=== PATIENT | female | born 1950 | race Caucasian/White ===

== ENCOUNTER 2016-07-14 08:34 | Outpatient (CLI) | payer OTHER | END 2016-07-14 08:35 | disposition home or self-care (01) | DX: Z12.31 Encounter for screening mammogram for malignant neoplasm of breast (principal) ==

== ENCOUNTER 2016-08-11 10:49 | Outpatient (CLI) | payer OTHER | END 2016-08-11 10:50 | disposition home or self-care (01) | DX: E83.52 Hypercalcemia (principal); R94.5 Abnormal results of liver function studies ==

== ENCOUNTER 2016-10-06 09:53 | Outpatient (CLI) | payer OTHER | END 2016-10-06 09:54 | disposition home or self-care (01) | DX: E78.2 Mixed hyperlipidemia (principal); E55.9 Vitamin D deficiency, unspecified; Z79.899 Other long term (current) drug therapy ==

== ENCOUNTER 2017-01-05 10:22 | Outpatient (CLI) | payer OTHER ==
[2017-01-06 21:27] LABS: TEST RESULT REPORT (())
== END 2017-01-05 10:23 | disposition home or self-care (01) ==
LOC: LAB.R 10:22
PROVIDERS: ATTEND Nurse Practitioner Obstetrics & Gynecology
DX: N76.1 Subacute and chronic vaginitis (principal)
CPT/HCPCS: 81599; 87480; 87510; 87660

== ENCOUNTER 2017-01-11 19:49 | Outpatient (CLI) | payer OTHER ==
--- NOTE | 2017-01-12 14:37 | Ultrasound Report ---
PELVIC ULTRASOUND: 01/11/2017 CLINICAL INDICATION: Postmenopausal bleeding. TECHNIQUE: Transabdominal pelvic ultrasound performed for global evaluation. Transvaginal pelvic ultr asound performed for detailed evaluation. Real-time scanning performed and static images obtained. FINDINGS: The uterus is anteverted, measuring 12.1 x 8.4 x 9.1 cm. The endometrial echo complex is t hickened for a postmenopausal patient, measuring 7 mm. A large posterior intramural leiomyoma is note d, measuring 7.2 x 6.3 x 5.3 cm. The right ovary measures 2.9 x 1.2 x 1.2 cm, and appears unremarkabl e. The left ovary measures 4.0 x 2.8 x 1.8 cm, and appears unremarkable. No free fluid is present. IMPRESSION: THICKENED ENDOMETRIUM FOR A POSTMENOPAUSAL PATIENT. CORRELATION WITH ENDOMETRIAL BIOPSY IS RECOMMENDED. LARGE POSTERIOR LEIOMYOMA. JOB #: [id number] EXT JOB #:[id number]
== END 2017-01-11 19:50 | disposition home or self-care (01) ==
LOC: DI 19:49
PROVIDERS: ATTEND Nurse Practitioner Obstetrics & Gynecology
DX: R93.8 Abnormal findings on diagnostic imaging of other specified body structures (principal); D25.1 Intramural leiomyoma of uterus
CPT/HCPCS: 76830; 76856

== ENCOUNTER 2017-05-07 09:24 | Outpatient (CLI) | payer MEDICARE, OTHER ==
[2017-05-08 10:06] LABS: THYROID STIMULATING HORMONE 2.77 uIU/mL (0.34-5.60)
== END 2017-05-07 23:59 | disposition home or self-care (01) ==
LOC: LAB.R 09:24
PROVIDERS: ATTEND Obstetrics & Gynecology
DX: E03.9 Hypothyroidism, unspecified (principal)
CPT/HCPCS: 84439; 84443; 84481

== ENCOUNTER 2017-05-07 12:26 | Outpatient (CLI) | payer OTHER, MEDICARE ==
[2017-05-07 13:23] LABS: BASOPHILS # (AUTO) 0.2 10^3/uL (0.0-0.1); BASOPHILS % (AUTO) 1.8 %; EOSINOPHILS # (AUTO) 0.2 10^3/uL (0.0-0.7); EOSINOPHILS % (AUTO) 1.6 %; HCT - HEMATOCRIT 47.7 % (37.0-47.0); HGB - HEMOGLOBIN 15.8 g/dL (12.0-16.0); LYMPHOCYTES # (AUTO) 2.9 10^3/uL (1.5-3.5); LYMPHOCYTES % (AUTO) 28.9 %; MEAN CORPUSCULAR HEMOGLOBIN 29.3 pg (27.0-31.0); MEAN CORPUSCULAR HGB CONC 33.1 g/dL (32.0-36.0); MEAN CORPUSCULAR VOLUME 88.5 fL (81.0-99.0); MONOCYTES # (AUTO) 0.6 10^3/uL (0.0-1.0); MONOCYTES % (AUTO) 5.7 %; NEUTROPHILS # (AUTO) 6.2 10^3/uL (1.5-6.6); NUCLEATED RED BLOOD CELLS AUTO 0.1 /100WBC; RED BLOOD COUNT 5.39 10^6/uL (4.20-5.40); RED CELL DISTRIBUTION WIDTH 13.9 % (12.0-15.0); UNCORRECTED WHITE BLOOD COUNT 10.1 x10^3/uL; WHITE BLOOD COUNT 10.1 x10^3/uL (4.8-10.8)
[2017-05-07 13:36] LABS: ALBUMIN/GLOBULIN RATIO 1.3 (1.0-2.2); BILIRUBIN,TOTAL 0.7 mg/dL (0.2-1.0); CALCIUM 9.8 mg/dL (8.5-10.3); CREATININE 0.9 mg/dL (0.4-1.0); POTASSIUM 4.4 mmol/L (3.5-5.0); TOTAL PROTEIN 7.8 g/dL (6.7-8.2)
[2017-05-07 14:09] LABS: PLATELET MORPHOLOGY NORMAL APPEARANCE (NORMAL)
[2017-05-08 10:13] LABS: HEMOGLOBIN A1C 0.95 g/dL
== END 2017-05-07 12:27 | disposition home or self-care (01) ==
LOC: LAB 12:26
PROVIDERS: ATTEND Obstetrics & Gynecology
DX: Z01.818 Encounter for other preprocedural examination (principal); N95.0 Postmenopausal bleeding; D25.9 Leiomyoma of uterus, unspecified; Z79.899 Other long term (current) drug therapy
CPT/HCPCS: 36415; 80053; 83036; 85025; 86850; 86900; 86901; 93005

== ENCOUNTER 2017-05-09 09:54 | Day surgery (SDC) | payer OTHER ==
--- NOTE | 2017-05-07 13:33 | PREOP HISTORY & PHYSICAL ---
DATE OF ADMISSION/SURGERY: 05/09/2017 IDENTIFICATION: A 67-year-old G0. HISTORY OF PRESENT ILLNESS: The patient presents today to [facility] for her preop visit. She has been scheduled for an 05/09/2017 total laparoscopic hysterectomy, bilateral salpingo-oophorectomy, and cystoscopy. The patient first saw me for consultation on 02/27/2017 secondary to postmenopausal bleeding. She stated that approximately in November of this year, she started having a light mucousy discharge. She also started to have more GI problems with respect to bloating and constipation. She had a subsequent 2016 pelvic ultrasound revealing a uterus measuring 12.1 x 8.4 x 9.1 cm, and it was anteverted. The endometrium measured 7 mm. There was a posterior leiomyoma measuring 7.2 x 6.3 x 5.3 cm. The right ovary measured 2.9 x 1.2 x 1.2 cm, and the left measured 4.0 x 2.8 x 1.8 cm. Given the size of the fibroid and its location, I recommended the patient to undergo a hysterectomy in order to solve her bleeding issues. It is possible that her fibroid may be necrosing, thus causing her bleeding. I discussed with the patient the risks, benefits, alternatives, indications, and expectations of a total laparoscopic hysterectomy, with a bilateral salpingo-oophorectomy and cystoscopy. With the surgery, the patient does have intrinsic risks of anesthesia, hemorrhage, infection, and damage to surrounding organs. With respect to damage to surrounding organs, this may be an inadvertent laceration, cauterization, or ligation of the adjacent ureters, intestines, or bladder. With this surgery, she will no longer be able to have postmenopausal bleeding. Furthermore, given the technical difficulty of the surgery, it is possible that we may have to abort the laparoscopic approach and proceed to an exploratory laparotomy. If we did proceed to an open case, the patient would need to stay for 1-2 nights, as opposed to going home later that evening for a laparoscopic approach. After all of the patient's questions were answered to her satisfaction , she verbalized her desired to proceed with surgery. Consent forms have been signed. The patient, otherwise, is doing well. She denies any nausea, vomiting, fevers, chills, diarrhea, or constipation. PAST MEDICAL HISTORY: 1. Hypothyroidism. 2. GERD. 3. Allergic rhinitis. 4. Mildly elevated cholesterol. 5. Nephrolithiasis bilaterally. PAST SURGICAL HISTORY: 1. Left knee arthroscopy. 2. Dilatation and curettage, with a transvaginal myomectomy. ALLERGIES: 1. SULFA, FOR WHICH SHE HAS LEG CRAMPING. 2. ERYTHROMYCIN, FOR WHICH SHE HAS AN UPSET STOMACH. MEDICATIONS: Levothyroxine, alternating between 150 and 175 mcg every other day. Her pharmacy of choice is [facility] in [place], [place]. (During her 2014 admit to [facility] admission she was discharged on Levothyroxine 125 mcg and 1150 mcg alternating days, ASA 81 mg 1 tab po daily, Omeprazole 20 mg 1 tab po daily, Atorvastatin 10 mg 1 tab po daily, metoprolol 25 mg ER 1 tab po daily.) SOCIAL HISTORY: She denies any tobacco or illicit drug use. She does consume alcohol on a social basis. Regine Cosby PA-C, is her primary care provider. 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 Her significant other is Margoth, an artist. PAST OBSTETRICAL HISTORY: Nulligravida. PAST GYNECOLOGICAL HISTORY: She has been in menopause for the last 10 years, and all Pap smears have been within normal limits. She denies any sexually transmitted diseases. FAMILY HISTORY: She denies any female carcinoma. REVIEW OF SYSTEMS: Negative unless otherwise stated. OBJECTIVE: VITAL SIGNS: Weight is 216 pounds. Height is 65 inches. BMI is 36. Blood pressure is 142/80. GENERAL: The patient is a well-developed, obese female in no apparent distress. She is alert and oriented x3. The patient is very pleasant and easy to speak to. She is also very intelligent. HEENT: Within normal limits. CARDIOVASCULAR: Rate is regular. No murmurs or rubs. PULMONARY: Lungs are clear to auscultation bilaterally. ABDOMEN: Obese, but nontender. DIAGNOSTIC DATA: Workup has revealed a 01/05/2014 Pap smear and high-risk HPV virus that were both negative. An 01/23/2017 endometrial biopsy revealed a few superficial fragments of endometrial mucosa, with focal cystic change. She has had a 2-dimensional CARLOS ENRIQUE on 08/24/2014 that was technically difficult. Contrast injection was performed. No comparison study. Normal left ventricular chamber size, with an ejection fraction of 55% to 60%. No regional wall motion abnormality. Normal right ventricular chamber size and function. Normal diastolic function for age and normal atrial size. Normal valves, without stenosis or clinically significant regurgitation. Unable to calculate pulmonary pressure due to insufficient TR. The right atrial pressure was normal. On 2014, cardiac stress test showed an equivocal stress echocardiogram for ischemia by electrocardiographic criteria. Negative stress test clinically for angina. Ectopy noted. On 04/29/2015, CT of the abdomen and pelvis was significant for bilateral mild hydronephrosis. Contrast was seen in both ureters. The uterus was bulky, with a large central leiomyoma. No pelvic adenopathy or free fluid was present. There was bilateral nephrolithiasis, with a 1.5 cm calculus at the right ureteropelvic junction and a 1.0 cm calculus at the left ureteropelvic junction , producing bilateral mild hydronephrosis. Finally, there was a 01/09/2014 pelvic ultrasound revealing a uterus measuring 9.7 x 6.2 x 7.7 cm, anteverted position, normal overall size and echotexture, and a posterior right submucosal fibroid measuring 4.5 x 4.7 x 4.4 cm. The endometrium measured 4 mm, with trace fluid. The cervix was unremarkable. The right ovary measured 3.7 x 2.9 x 1.4 cm. The left ovary measured 3.5 x 2.5 x 1.6 cm. No free fluid. No hydronephrosis bilaterally. ASSESSMENT: 1. A 67-year-old G0. 2. Postmenopausal bleeding. 3. Leiomyoma. PLAN: 1. We will proceed to a scheduled total laparoscopic hysterectomy, with bilateral salpingo-oophorectomy and cystoscopy. May have to proceed to exploratory laparotomy given the technical difficulty of the leiomyoma. 2. The patient will get preop labs, including a CBC, comp panel, and hemoglobin A1c. Also, EKG is ordered. We will have a type and screen ordered as well. 3. Anticipate giving Ancef 2 grams IV prior to incision for postoperative prophylaxis of cellulitis. 4. Discussed with the patient in detail that most of her pain will be due to inflammation, in which ibuprofen 800 mg 1 tab p.o. q.6h. as well as acetaminophen 1 gram p.o. q.8h. will be synergistic. She has been given a prescription for oxycodone 5 mg 1-2 tabs p.o. q.6h. p.r.n. for breakthrough pain. 5. She is to follow up with a postoperative visit in 2 weeks. JOB #: [id number] EXT JOB #:[id number] MTDD
[~2017-05-09 09:54] MED LIST: ceFAZolin 2 GM/50 ML 2 GM/50 ML BAG IV ONE
[2017-05-09] MEDS ORDERED: LACTATED RINGERS 1,000 ML IV ONE ×3 (09:57→15:20)
[2017-05-09] MEDS ORDERED: ONDANSETRON 4 MG/2 ML VIAL IVP ONE (11:00)
[2017-05-09] MEDS ORDERED: DEXAMETHASONE 4 MG/ML VIAL IVP ONE (11:00)
[2017-05-09] MEDS ORDERED: PROPOFOL 200 MG/20 ML VIAL IVP ONE (11:00)
[2017-05-09] MEDS ORDERED: ceFAZolin 1 GM VIAL IV ONE (11:00)
[2017-05-09] MEDS ORDERED: ROCURONIUM 50 MG/5 ML VIAL IVP ONE (11:00)
[2017-05-09] MEDS ORDERED: fentaNYL 100 MCG/2 ML VIAL IVP ONE (11:00)
[2017-05-09] MEDS ORDERED: LIDOCAINE-MPF 2% 5 ML VIAL IM ONE (11:00)
[2017-05-09] MEDS ORDERED: BUPIVACAINE 0.25% PF 30 ML VIAL SUBQ ONE ×2 (11:19)
--- NOTE | 2017-05-09 15:55 | OPERATIVE REPORT ---
Operative Report - Other Other Information/Narrative: Date of Operation: 05/09/2017 Surgeon: Suni Guallpa DO FACOG Gas Well Pumper: Olu Rodriguez MD FACOG Anesthesiologist: Camron Cardozo MD Anesthesia: GET Pre-op Dx: 1. 67 yo G0 2. Postmenopausal bleeding 3. Leiomyoma Post-op Dx: 1. 67 yo G0 2. Postmenopausal bleeding 3. Leiomyoma Procedures: 1. TLH 2. BSO 3. Cystoscopy Findings: 1. Normal fallopian tubes and ovaries 2. Leiomymatous uterus 3. Normal appendix 4. Fatty liver 5. Normal bladder and bilateral ureteral jets Specimens: Uterus, ovaries and fallopian tubes Drains: Andrade catheter to gravity EBL: 300 mL Complications: None Dictation number: [id number]
--- NOTE | 2017-05-09 16:05 | XRAY Report ---
SUPINE ABDOMEN: 05/09/2017 CLINICAL INDICATION: Broken instrument. FINDINGS: Supine intraoperative images of the abdomen were obtained. The bowel gas pattern is unrema rkable. Surgical ports are noted. A suture needle and a piece of a forceps from a laparoscopic instru ment are noted in the midline pelvis. Packing material is noted in the vagina. IMPRESSION: SUTURE NEEDLE AND A PIECE OF A LAPAROSCOPIC FORCEPS NOTED IN THE MIDLINE PELVIS. CRITICAL TEST: RESULTS CALLED TO THE OPERATING ROOM ON 05/09/2017 AT 1445 HOURS. JOB #: [id number] EXT JOB #:[id number]
[2017-05-09 18:09] VITALS: BP 148/65
--- NOTE | 2017-05-10 06:11 | OPERATIVE REPORT ---
DATE OF SURGERY: 05/09/2017 00:00:00 SURGEON: Suni Guallpa DO, FACOG. BRAIN WAVE TECHNICIAN: Olu Rodriguez MD, FACOG. ANESTHESIOLOGIST: Camron Newman MD. ANESTHESIA: General endotracheal tube. PREOPERATIVE DIAGNOSES 1. A 67-year-old G0. 2. Postmenopausal bleeding. 3. Leiomyoma. POSTOPERATIVE DIAGNOSES 1. A 67-year-old G0. 2. Postmenopausal bleeding. 3. on Leiomyoma. PROCEDURES 1. Total laparoscopic hysterectomy. 2. Bilateral salpingo-oophorectomy. 3. Cystoscopy. FINDINGS 1. Normal fallopian tubes and ovaries. 2. Leiomyomatous uterus. 3. Normal appendix. 4. Fatty liver. 5. Normal bladder and bilateral ureteral jets on cystoscopy. SPECIMENS: Uterus, ovaries, and fallopian tubes. DRAINS: Andrade catheter to gravity. ESTIMATED BLOOD LOSS: 300 mL. COMPLICATIONS: None. BRIEF HISTORY: This is a patient at [facility] who has had postmenopausal bleeding. Workup revealed a normal endometrial biopsy. Ultrasound , however, revealed a significant leiomyomatous uterus measuring 12.1 x 8.4 x 9.1 cm. There was a posterior leiomyoma measuring 7.2 x 6.5 x 5.3 cm. I recommended the patient to undergo a total laparoscopic hysterectomy with bilateral salpingo-oophorectomy and cystoscopy. I discussed with the patient the risks, benefits, alternatives, indications and expectations of surgery. Included in this discussion were the risk of infection, hemorrhage, and damage to surrounding organs. With respect to damage to surrounding organs, this may be an inadvertent laceration, cauterization or ligation of adjacent intestines, ureters or bladder. After all of her questions were answered to her satisfaction , she verbalized her desire to proceed with surgery. Consent forms have been signed. OPERATION IN DETAIL: The patient was identified, consented, and taken to the operating room where IV access was already in place. She was then given sequential compression devices, which were placed on her lower extremities and turned on. She was given satisfactory general endotracheal tube anesthesia as per Dr. Newman, and 2 grams of Ancef IV was given to her for prophylaxis of cellulitis postoperatively. A Andrade catheter was placed in her bladder and she was prepped and draped in the normal sterile fashion in the lithotomy position using the yellofin stirrups. A timeout was performed, which correctly identified the patient, site of the procedure, and the procedure itself. VCare uterine manipulator and colpotomizer were placed in the uterus. Next, three 5 mm trocar ports were placed in the abdomen, one in the subumbilical fold and 2 in the right and left lower quadrant. There were all 5 mm in size and 1% Marcaine was used to anesthetize all 3 sites. A total of 20 mL were used , both before and after surgery. With the help of the Visiport trocar, entrance in the abdomen was made in the subumbilical fold. Visual confirmation of entrance in the abdomen was made. CO2 gas was used to insufflate the abdomen, thus obtaining satisfactory pneumoperitoneum. The 2 other trocar port sites were then placed under direct visualization with the camera. Again, no trauma to intraabdominal organs was noted. Inspection of the pelvis and abdomen showed a leiomyomatous uterus as anticipated. The adnexa were also within normal limits. The appendix was visualized and appeared to be almost retroperitoneal. It was within normal limits. Liver edge was seen along with the gallbladder. The liver looked like it was fatty. The left adnexa was first identified, and the infundibulopelvic ligament was then clamped, cauterized, and incised using the LigaSure. An incision was then carried inferiorly in order to excise the fallopian tube and round ligament. This incision was then extended inferiorly in order to clamp, cauterize, and incise the broad ligament. This incision was then carried inferiorly in order to clamp and only cauterize the uterine artery. The incision was carried through inferiorly through the anterior leaf of the broad ligament and brought in immediately in order to help create a bladder flap. Attention was then turned towards the right aspect of the uterus. The right adnexa was identified and followed to its fimbriated end. The right infundibulopelvic ligament was then identified, clamped, cauterized, and incised , again using LigaSure. The round ligament was similarly clamped, cauterized, and incised, as well as the broad ligament. The right uterine artery was identified, clamped, cauterized, and incised. The broad ligament was then carried inferiorly and then medially in order to join up with the bladder flap that had already been developed on the left side. With the uterus nicely blanching, the left uterine artery was then incised. The pericervical tissue was then further developed in order to dissect the bladder off of the cervix. An incision was made with the monopolar L-hook on the cervix. The superior green cup of the VCare was then seen. This incision was carried circumferentially in order to liberate the cervix from the pelvis. Care was taken in order to not use the monopolar on any of the intestines or bladder. The uterus was quite difficult in order to remove from the pelvis. Given that the fibroid was located in the fundus of the uterus, it had a cork like affect on the pelvis and could not be easily delivered through the bony pelvis. I did attempt to try to morcellate the uterus from the vaginal aspect, but unfortunately there was no significant descent. I had to resort to making multiple incisions on the fundus of the uterus laparoscopically using the L- hook. In doing so, I partially dissected the majority of the intramural fibroid. This eventually collapsed the majority of the uterus, and the uterus, fallopian tubes, and ovaries were finally liberated from the pelvis. Hemostasis was noted. The vaginal cuff was then closed with the 0 V-Loc. Hemostasis was noted throughout the entire pelvis. The abdomen was also copiously irrigated and again found to be hemostatically stable. The vagina was noted to have 3 small lacerations in order to extricate the uterus. There were second-degree lacerations at the 1, 6, and 11 o'clock positions. The lacerations were repaired using 2-0 Vicryl. Cystoscopy was then performed using a 30-degree cystoscopy camera. Saline solution was used to distend the bladder. Bilateral ureteral jets were seen. The bladder itself was intact and no bleeding was noted. The Andrade catheter was replaced. The patient tolerated the procedure well, was taken back to the recovery room in stable condition. All sponge, lap and needle counts were correct x2 as per nurse report. It was noted intraoperatively that one-half of the Prestige grasper had come off the instrument itself. An x-ray was performed, which identified the half of the grasper in the pelvis. We were able to identify it and remove it from the cul-de-sac. The patient will be discharged home later today after postoperative criteria have been met. She has been instructed to take ibuprofen, Tylenol, and oxycodone for pain control. She is expected to see me at [facility] in 2 weeks for routine postoperative check. Also, she needs to see her primary care physician, as her glucose was noted to be in the 190s and a hemoglobin A1c of 7.0. She will need to have followup for her diabetes. JOB #: [id number] EXT JOB #:[id number] HAYDE
== END 2017-05-09 09:55 | disposition home or self-care (01) ==
LOC: SDS 09:54
PROVIDERS: ATTEND Obstetrics & Gynecology
PROC: 0UT2FZZ Resection of Bilateral Ovaries, Via Natural or Artificial Opening With Percutaneous Endoscopic Assistance (ICD-10-PCS; 2017-05-09)
PROC: 0UT7FZZ Resection of Bilateral Fallopian Tubes, Via Natural or Artificial Opening With Percutaneous Endoscopic Assistance (ICD-10-PCS; 2017-05-09)
PROC: 0UT9FZZ Resection of Uterus, Via Natural or Artificial Opening With Percutaneous Endoscopic Assistance (ICD-10-PCS; principal; 2017-05-09 11:00)
DX: D25.1 Intramural leiomyoma of uterus (principal); D07.39 Carcinoma in situ of other female genital organs; K76.0 Fatty (change of) liver, not elsewhere classified
CPT/HCPCS: 58554; 74000; J0690; J7120

== ENCOUNTER 2017-05-23 13:55 | Outpatient (CLI) | payer OTHER | END 2017-05-23 13:56 | disposition home or self-care (01) | LOC: LAB 13:55 | PROVIDERS: ATTEND Obstetrics & Gynecology | DX: Z85.43 Personal history of malignant neoplasm of ovary (principal) | CPT/HCPCS: 86304 ==

== ENCOUNTER 2017-05-29 07:25 | Outpatient (CLI) | payer OTHER ==
[2017-05-29] MEDS ORDERED: IOPAMIDOL-300 50 ML VIAL ONE (07:45)
[2017-05-29] MEDS ORDERED: IOPAMIDOL-300 100 ML VIAL ONE (07:45)
[2017-05-29] MEDS ORDERED: IOPAMIDOL-300 100 ML VIAL IVP ONE (08:01)
[2017-05-29] MEDS ORDERED: IOPAMIDOL-300 50 ML VIAL PO ONE (08:01)
--- NOTE | 2017-05-30 13:41 | CT Report ---
EXAM: CT CHEST EXAM DATE: 05/29/2017 08:56 AM. CLINICAL HISTORY: MALIGNANT NEOPLASM OF LEFT OVARY. COMPARISONS: None. TECHNIQUE: Routine helical CT imaging was performed through the chest. IV contrast: 100 mL Isovue 300 . Reconstructions: Coronal and sagittal. In accordance with CT protocol optimization, one or more of the following dose reduction techniques w ere utilized for this exam: automated exposure control, adjustment of mA and/or KV based on patient s ize, or use of iterative reconstructive technique. FINDINGS: Lungs/Pleura: No nodules, bronchial thickening, consolidation, or edema. Pulmonary vasculature is nor mal. No pericardial or pleural effusion. No pneumothorax. Mediastinum: Normal. No adenopathy or masses. The heart and great vessels are normal. Bones: Unremarkable. Visualized Abdomen: Hepatic steatosis. Other: None. IMPRESSION: 1. No evidence of metastatic disease to the chest. 2. Hepatic steatosis. [facility] Referring Provider Line: [phone] SITE ID: [id number]
--- NOTE | 2017-05-30 13:47 | CT Report ---
EXAM: CT ABDOMEN AND PELVIS EXAM DATE: 05/29/2017 08:56 AM. CLINICAL HISTORY: MALIGNANT NEOPLASM OF LEFT OVARY. COMPARISONS: CT IVP dated 04/29/2015. TECHNIQUE: Routine helical CT imaging was performed through the abdomen and pelvis. IV contrast: 100M L OF ISOVUE 300. Enteric contrast: No. Reconstructions: Coronal and sagittal. In accordance with CT protocol optimization, one or more of the following dose reduction techniques w ere utilized for this exam: automated exposure control, adjustment of mA and/or KV based on patient s ize, or use of iterative reconstructive technique. FINDINGS: Lung Bases: Unremarkable. Liver: Normal. No masses. Gallbladder/Bile Ducts: Unremarkable. Spleen: Normal. Pancreas: Normal. Adrenal Glands: Normal. Kidneys: There is a nonobstructing 4 mm stone and a nonobstructing 3 mm stone in the right kidney. No hydronephrosis or hydroureter. Peritoneal Cavity/Bowel: Normal. No free fluid, free air or adenopathy. No masses or acute inflammato ry process. The appendix is not visualized. Pelvic Organs: Status post hysterectomy. Vasculature: No aneurysms or other significant abnormality. Bones: No significant abnormality. Other: None. IMPRESSION: 1. Status post hysterectomy with postsurgical changes in the pelvis. No lymphadenopathy or evidence o f metastatic disease. 2. No bowel obstruction or inflammatory process associated with the bowel. 3. Nephrolithiasis without hydronephrosis or hydroureter. [facility] Referring Provider Line: [phone] SITE ID: [id number]
== END 2017-05-29 07:26 | disposition home or self-care (01) ==
LOC: DI 07:25
PROVIDERS: ATTEND Obstetrics & Gynecology
DX: C56.2 Malignant neoplasm of left ovary (principal); N20.0 Calculus of kidney; Z90.710 Acquired absence of both cervix and uterus; K76.0 Fatty (change of) liver, not elsewhere classified
CPT/HCPCS: 71260; 74177; Q9967

== ENCOUNTER 2017-07-25 16:25 | Outpatient (CLI) | payer OTHER ==
--- NOTE | 2017-07-26 15:45 | Mammography Report ---
DATE OF SERVICE: 07/25/2017 DIGITAL SCREENING MAMMOGRAM: 07/25/2017 CLINICAL INDICATION: A 67-year-old nulliparous patient for screening. COMPARISON: 06/2016, 03/2015, 12/2013. TECHNIQUE: Routine CC and MLO projections were obtained of the breasts. FINDINGS: Scattered fibroglandular tissue is present within the breasts. There are no dominant masses, suspicious microcalcifications, or secondary signs of malignancy. In comparison to the previous studies, there are no significant changes. ASSESSMENT: NO MAMMOGRAPHIC EVIDENCE OF MALIGNANCY. NO SIGNIFICANT INTERVAL CHANGES. RECOMMENDATION: Screening mammography is recommended annually. BIRADS CATEGORY 1 - NEGATIVE. STANDARD QUALIFYING STATEMENTS: 1. This examination was reviewed with the aid of Computed-Aided Detection (CAD). 2. A negative or benign imaging report should not delay biopsy if clinically suspicious findings are present. Consider surgical consultation if warranted. More than 5% of cancers are not identified by imaging. 3. Dense breasts may obscure an underlying neoplasm. TD: 07/26/2017 15:44
== END 2017-07-25 16:26 | disposition home or self-care (01) ==
LOC: DI 16:25
PROVIDERS: ATTEND Physician Assistant Medical
DX: Z12.31 Encounter for screening mammogram for malignant neoplasm of breast (principal)
CPT/HCPCS: 77067

== ENCOUNTER 2018-12-06 14:16 | Outpatient (CLI) | payer MEDICARE, OTHER ==
--- NOTE | 2018-12-06 15:54 | Mammography Report ---
Reason: SCREENING MAMMO Procedure Date: 12/06/2018 Accession Number: [id number] / [id number] Procedure: ASHLEY - Screening Mammo w/Epifanio CPT Code: FULL RESULT: EXAM: Screening Mammo w/Epifanio DATE: 12/06/2018 2:52 PM CLINICAL HISTORY: Screening TECHNIQUE: (B) - Bilateral CC and MLO views were obtained. COMPARISON: 03/26/2015, 07/14/2016, 07/25/2017 PARENCHYMAL PATTERN: (A) - The breasts demonstrate scattered fibroglandular densities bilaterally. FINDINGS: Small intramammary lymph node upper inner quadrant right breast unchanged back to at least 03/26/2015. There are no suspicious masses, calcifications, or areas of distortion. IMPRESSION: Negative examination. BI-RADS category 1. RECOMMENDATION: (ANNUAL) - Recommend routine annual screening mammography. BI-RADS CATEGORY: (1) - Negative. STANDARD QUALIFYING STATEMENTS: 1. This examination was not reviewed with the aid of Computer-Aided Detection (CAD). 2. A negative or benign imaging report should not preclude biopsy if clinically suspicious findings are present. 3. Dense breasts may obscure an underlying neoplasm. 4. This examination was reviewed with the aid of 3D breast imaging (tomosynthesis).
== END 2018-12-06 14:17 | disposition home or self-care (01) ==
LOC: DI 14:16
PROVIDERS: ATTEND Internal Medicine
DX: Z12.31 Encounter for screening mammogram for malignant neoplasm of breast (principal)
CPT/HCPCS: 77063; 77067

== ENCOUNTER 2020-04-02 12:21 | Outpatient (CLI) | payer MEDICARE, OTHER ==
--- NOTE | 2020-04-02 16:16 | XRAY Report ---
PROCEDURE: Chest 2 View X-Ray INDICATIONS: POST LUNG SURGERY TECHNIQUE: 2 view(s) of the chest. COMPARISON: None. FINDINGS: Surgical changes and devices: None. Lungs and pleura: No pleural effusions or pneumothorax. Lungs are abnormal with a mass lesion super imposed on the right upper lobe measuring approximately 3 cm.. Mediastinum: Mediastinal contours are normal. Heart size is normal. Bones and chest wall: No suspicious bony abnormalities. Soft tissues appear unremarkable. IMPRESSION: 3 cm right upper lobe lung mass. The clinical history provided indicates prior lung surg tae. This is therefore an unexpected finding and may represent a new malignancy. Contrast enhanced ch est CT scanning likely is warranted, depending on the clinical status. Reviewed by: Armando Medina MD on 04/02/2020 4:15 PM PDT Approved by: Armando Medina MD on 04/02/2020 4:15 PM PDT Station ID: [id number]
== END 2020-04-02 12:22 | disposition home or self-care (01) ==
LOC: DI 12:21
PROVIDERS: ATTEND Thoracic Surgery (Cardiothoracic Vascular Surgery)
DX: R91.8 Other nonspecific abnormal finding of lung field (principal); Z98.890 Other specified postprocedural states
CPT/HCPCS: 71046

== ENCOUNTER 2020-04-10 15:21 | Outpatient (CLI) | payer MEDICARE, OTHER ==
[2020-04-10 15:51] LABS: CALCIUM 10.1 mg/dL (8.5-10.3); CREATININE 1.2 mg/dL (0.4-1.0)
[2020-04-10 15:59] LABS: BILIRUBIN,URINE NEGATIVE (NEGATIVE); GLUCOSE, URINE (UA) NEGATIVE (NEGATIVE); KETONES,URINE (UA) NEGATIVE (NEGATIVE); LEUKOCYTE ESTERASE, URINE MODERATE (NEGATIVE); NITRITE,URINE NEGATIVE (NEGATIVE); OCCULT BLOOD,URINE LARGE (NEGATIVE); PROTEIN,URINE >=300 mg/dL (NEGATIVE); UROBILINOGEN,URINE 0.2 (NORMAL) E.U./dL (NORMAL)
[2020-04-10 16:13] LABS: BACTERIA,URINE Few /HPF (None Seen); CLARITY,URINE BLOODY (CLEAR); RBC,URINE TNTC /HPF (0-5); SQUAMOUS EPITHELIAL CELL,UR NONE SEEN (<= Few)
== END 2020-04-10 15:22 | disposition home or self-care (01) ==
LOC: LAB 15:21
PROVIDERS: ATTEND Urology
DX: R30.0 Dysuria (principal); N20.0 Calculus of kidney
CPT/HCPCS: 36415; 80048; 81001; 81003; 87086

== ENCOUNTER 2020-04-11 15:53 | Outpatient (CLI) | payer MEDICARE, OTHER ==
--- NOTE | 2020-04-11 19:28 | Ultrasound Report ---
PROCEDURE: Retroperitoneal INDICATIONS: CLACULUS OF KIDNEY TECHNIQUE: Real-time scanning was performed of the retroperitoneal organs, with image documentation. COMPARISON: CT abdomen and pelvis with contrast dated 05/29/2017. FINDINGS: Kidneys: Kidneys are normal in size. Right kidney measures 10.7 cm long; left kidney measures 12.1 cm long. Right renal cortical thickness is 1.2 cm; left renal cortical thickness is 1.3 cm. No solid masses or hydronephrosis. Probable nonobstructing right middle pole stone measuring 8 x 6 x 10 mm. Probable nonobstructing righ t lower pole stone measuring 10 x 22 x 7 mm. Nonobstructing left upper pole stone measuring 3 x 4 x 5 mm. Nonobstructing medial pole stone of the left kidney measuring 7 x 2 x 9 mm. Bladder: Pre-void bladder volume is 264 mL. Post-void residual is 4 mL. Pre-void images demonstrat e no intraluminal masses or stones. On pre-void images, bilateral ureteral jets are noted with color Doppler interrogation. (Of note, ureteral jets may not be detectable in up to 25% of cases due to i nsufficient differences in specific gravity between ureteral and bladder urine). Miscellaneous: No free pelvic fluid. IMPRESSION: Bilateral nonobstructing renal stones. No hydronephrosis. Reviewed by: Akhil Cuevas MD on 04/11/2020 7:27 PM PDT Approved by: Akhil Cuevas MD on 04/11/2020 7:27 PM PDT Station ID: [id number]
== END 2020-04-11 23:59 | disposition home or self-care (01) ==
LOC: DI 15:53
PROVIDERS: ATTEND Physician Assistant Surgical
DX: N20.0 Calculus of kidney (principal)

== ENCOUNTER 2020-04-12 16:57 | Outpatient (CLI) | payer MEDICARE, OTHER ==
--- NOTE | 2020-04-12 18:50 | XRAY Report ---
PROCEDURE: Abdomen 1 View X-Ray INDICATIONS: CALCULUS OF KIDNEY TECHNIQUE: 1 view of the abdomen were acquired. COMPARISON: CT of abdomen and pelvis dated 05/29/2017. Renal ultrasound dated 04/11/2020 FINDINGS: Surgical changes and devices: A right-sided ureteral stent is seen at its expected location.. Bowel: No pneumoperitoneum. The bowel gas pattern is normal. Soft tissues: Multiple large calcifications are seen projecting in the region of mid to lower pole ri ght kidney and measures up to 1.5 x 0.8 cm in size. No definite calcified left renal stone is seen. N o suspicious abdominal calcifications. Bones: No suspicious bony abnormalities. IMPRESSION: Multiple right renal calculi. Right-sided ureteral stent in place. No definite left leonor l calculi are seen. Reviewed by: Abilio Nixon MD on 04/12/2020 5:49 PM AKDT Approved by: Abilio Nixon MD on 04/12/2020 5:49 PM AKDT Station ID: [id number]
== END 2020-04-12 16:58 | disposition home or self-care (01) ==
LOC: DI 16:57
PROVIDERS: ATTEND Urology
DX: N20.0 Calculus of kidney (principal); R30.0 Dysuria
CPT/HCPCS: 74018

== ENCOUNTER 2020-05-10 12:15 | Outpatient (CLI) | payer MEDICARE, OTHER ==
[2020-05-10 12:34] LABS: BASOPHILS # (AUTO) 0.1 10^3/uL (0.0-0.1); BASOPHILS % (AUTO) 0.7 %; EOSINOPHILS # (AUTO) 0.1 10^3/uL (0.0-0.7); EOSINOPHILS % (AUTO) 1.4 %; HGB - HEMOGLOBIN 8.3 g/dL (12.0-16.0); LYMPHOCYTES # (AUTO) 1.9 10^3/uL (1.5-3.5); LYMPHOCYTES % (AUTO) 27.6 %; MEAN CORPUSCULAR HEMOGLOBIN 20.2 pg (27.0-31.0); MEAN CORPUSCULAR HGB CONC 27.5 g/dL (32.0-36.0); MEAN CORPUSCULAR VOLUME 73.5 fL (81.0-99.0); MEAN PLATELET VOLUME 8.5 fL (7.9-10.8); MONOCYTES # (AUTO) 0.5 10^3/uL (0.0-1.0); MONOCYTES % (AUTO) 7.4 %; NEUTROPHILS # (AUTO) 4.4 10^3/uL (1.5-6.6); NEUTROPHILS % (AUTO) 62.3 %; PLT - PLATELET COUNT 354 10^3/uL (130-450); RED BLOOD COUNT 4.11 10^6/uL (4.20-5.40); RED CELL DISTRIBUTION WIDTH 19.4 % (12.0-15.0)
[2020-05-10 12:43] LABS: INR 1.3 (0.8-1.2); PT - PROTHROMBIN TIME 14.5 secs (9.9-12.6)
[2020-05-10 12:50] LABS: PARTIAL THROMBOPLASTIN TIME 31.9 secs (24.9-33.3)
[2020-05-10 13:02] LABS: CALCIUM 10.4 mg/dL (8.5-10.3)
== END 2020-05-10 12:16 | disposition home or self-care (01) ==
LOC: LAB 12:15
PROVIDERS: ATTEND Urology
DX: N20.0 Calculus of kidney (principal); R79.1 Abnormal coagulation profile
CPT/HCPCS: 36415; 80048; 85025; 85610; 85730

== ENCOUNTER 2021-01-26 11:23 | Outpatient (CLI) | payer MEDICARE, OTHER ==
[2021-01-26 11:40] LABS: BASOPHILS # (AUTO) 0.1 10^3/uL (0.0-0.1); BASOPHILS % (AUTO) 0.8 %; EOSINOPHILS # (AUTO) 0.1 10^3/uL (0.0-0.7); EOSINOPHILS % (AUTO) 0.7 %; HCT - HEMATOCRIT 38.1 % (37.0-47.0); HGB - HEMOGLOBIN 10.6 g/dL (12.0-16.0); LYMPHOCYTES # (AUTO) 1.9 10^3/uL (1.5-3.5); LYMPHOCYTES % (AUTO) 17.6 %; MEAN CORPUSCULAR HEMOGLOBIN 25.2 pg (27.0-31.0); MEAN CORPUSCULAR HGB CONC 27.8 g/dL (32.0-36.0); MEAN CORPUSCULAR VOLUME 90.7 fL (81.0-99.0); MEAN PLATELET VOLUME 9.1 fL (7.9-10.8); MONOCYTES # (AUTO) 0.7 10^3/uL (0.0-1.0); MONOCYTES % (AUTO) 6.9 %; NEUTROPHILS # (AUTO) 7.7 10^3/uL (1.5-6.6); NEUTROPHILS % (AUTO) 73.1 %; PLT - PLATELET COUNT 215 10^3/uL (130-450); RED CELL DISTRIBUTION WIDTH 21.3 % (12.0-15.0); WHITE BLOOD COUNT 10.5 x10^3/uL (4.8-10.8)
[2021-01-26 11:47] LABS: SLIDE REVIEW? Indicated
[2021-01-26 12:13] LABS: ALBUMIN 3.8 g/dL (3.2-5.5); ALBUMIN/GLOBULIN RATIO 1.3 (1.0-2.2); BILIRUBIN,TOTAL 0.4 mg/dL (0.2-1.0); CALCIUM 10.2 mg/dL (8.5-10.3); CREATININE 0.9 mg/dL (0.4-1.0); PLATELET ESTIMATE, MANUAL NORMAL (130-450,000) (NORMAL); PLATELET MORPHOLOGY A (NORMAL); POTASSIUM 4.6 mmol/L (3.5-5.0); TOTAL PROTEIN 6.7 g/dL (6.7-8.2)
== END 2021-01-26 11:24 | disposition home or self-care (01) ==
LOC: LAB 11:23
PROVIDERS: ATTEND Internal Medicine Medical Oncology
DX: C49.9 Malignant neoplasm of connective and soft tissue, unspecified (principal); D50.0 Iron deficiency anemia secondary to blood loss (chronic)
CPT/HCPCS: 36415; 80053; 85025